=== PATIENT | male | born 1995 | race Two or more races ===

== ENCOUNTER 2016-08-04 15:34 | Emergency (ER) | payer MEDICARE, MEDICAID ==
[~2016-08-04] VITALS: Ht 165.1 cm; Wt 91.6 kg
[2016-08-04 15:34] VITALS: BP 127/77
== END 2016-08-04 16:27 | disposition home or self-care (01) ==
LOC: ER 15:37
DX: J06.9 Acute upper respiratory infection, unspecified (principal); F84.0 Autistic disorder
CPT/HCPCS: 99281; A4606; Z7502; Z7610

== ENCOUNTER 2017-02-27 13:39 | Emergency (ER) | payer MEDICARE ==
[~2017-02-27] VITALS: Ht 172.7 cm; Wt 99.8 kg
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
[2017-02-27] MEDS ORDERED: MIDAZOLAM HCL 2 MG/2ML VIAL IM ONE ×2 (15:30→16:00)
[2017-02-27] MEDS ORDERED: MIDAZOLAM HCL 2 MG/2ML VIAL ONE ×2 (15:38→15:50)
[2017-02-27 17:17] VITALS: BP 137/80
== END 2017-02-27 17:19 | disposition home or self-care (01) ==
LOC: ER 13:42
DX: S00.83XA Contusion of other part of head, initial encounter (principal); X83.8XXA Intentional self-harm by other specified means, initial encounter; Y93.89 Activity, other specified; Y92.89 Other specified places as the place of occurrence of the external cause; Y99.8 Other external cause status
CPT/HCPCS: 70450; 96374; 99285; A4606; A6402; J2250 ×2; Z7610

== ENCOUNTER 2017-03-17 13:08 | Emergency (ER) | payer MEDICARE ==
[~2017-03-17] VITALS: Ht 170.2 cm; Wt 97.5 kg
[2017-03-17 13:08] VITALS: BP 136/78
== END 2017-03-17 16:05 | disposition home or self-care (01) ==
LOC: ER 13:10
DX: J06.9 Acute upper respiratory infection, unspecified (principal); F84.0 Autistic disorder
CPT/HCPCS: 99281; A4606; Z7502; Z7610

== ENCOUNTER 2017-03-24 17:09 | Emergency (ER) | payer MEDICARE ==
[~2017-03-24] VITALS: Ht 167.6 cm; Wt 99.1 kg
[2017-03-24 17:39] VITALS: BP 99/54
--- NOTE | 2017-03-24 17:50 | NUR ---
RADIOLOGY AT BEDSIDE FOR CHEST XRAY.
== END 2017-03-24 18:27 | disposition home or self-care (01) ==
LOC: ER 17:10
DX: J40 Bronchitis, not specified as acute or chronic (principal); F84.0 Autistic disorder
CPT/HCPCS: 71010; 99283; A4606; Z7610

== ENCOUNTER 2017-06-24 10:46 | Emergency (ER) | payer MEDICARE ==
[~2017-06-24] VITALS: Ht 172.7 cm; Wt 104.3 kg
[2017-06-24 10:46] VITALS: BP 140/88
[2017-06-24] MEDS ORDERED: diphenhydrAMINE HCL 50 MG/ML VIAL IM ONE (12:30)
[2017-06-24] MEDS ORDERED: HALOPERIDOL LACTATE INJ 5 MG/ML VIAL IM ONE (12:30)
[2017-06-24] MEDS ORDERED: HALOPERIDOL LACTATE INJ 5 MG/ML VIAL ONE (12:45)
[2017-06-24] MEDS ORDERED: diphenhydrAMINE HCL 50 MG/ML VIAL ONE (12:45)
--- NOTE | 2017-06-24 13:07 | NUR ---
MEDICATED PATIENT PER MD ORDERS.
== END 2017-06-24 14:25 | disposition home or self-care (01) ==
LOC: ER 10:48
DX: S00.03XA Contusion of scalp, initial encounter (principal); F84.0 Autistic disorder; W22.8XXA Striking against or struck by other objects, initial encounter; Y93.89 Activity, other specified; Y92.89 Other specified places as the place of occurrence of the external cause; Y99.8 Other external cause status
CPT/HCPCS: 70450-TC; A4606; J1200; J1630; Z7610

== ENCOUNTER 2018-05-03 20:16 | Emergency (ER) | payer MEDICARE, BC ==
[~2018-05-03] VITALS: Ht 172.7 cm; Wt 109.3 kg
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
--- NOTE | 2018-05-03 21:45 | NUR ---
PT RESTING COMFORTABLY WITH FAMILY MEMBERS AT BEDSIDE. NO COMPLAINTS AT THIS TIME. VSS
--- NOTE | 2018-05-03 22:35 | NUR ---
Patient discharged to home in stable condition. Written and verbal after care instructions given. Patient verbalizes understanding of instruction.
[2018-05-03 22:37] VITALS: BP 135/87
== END 2018-05-03 22:30 | disposition home or self-care (01) ==
LOC: ER 20:21
DX: T65.91XA Toxic effect of unspecified substance, accidental (unintentional), initial encounter (principal); F84.0 Autistic disorder; Y92.89 Other specified places as the place of occurrence of the external cause
CPT/HCPCS: 99281; A4606; Z7502

== ENCOUNTER 2019-05-30 12:40 | Emergency (ER) | payer MEDICARE, BC ==
[~2019-05-30] VITALS: Ht 172.7 cm; Wt 109.3 kg
[2019-05-30 12:59] VITALS: BP 107/94
== END 2019-05-30 14:53 | disposition home or self-care (01) ==
LOC: ER 12:40
DX: L03.032 Cellulitis of left toe (principal); F84.0 Autistic disorder

== ENCOUNTER 2019-11-17 12:36 | Emergency (ER) | payer MEDICARE, BC ==
[~2019-11-17] VITALS: Ht 172.7 cm; Wt 115.7 kg
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
--- NOTE | 2019-11-17 12:51 | NUR ---
DR SALAZAR AT BEDSIDE
--- NOTE | 2019-11-17 13:41 | NUR ---
Patient discharged to home with mother in stable condition. Written and verbal after care instructions given. Mother verbalizes understanding of instruction.
[2019-11-17 13:42] VITALS: BP 143/88
== END 2019-11-17 13:42 | disposition home or self-care (01) ==
LOC: ER 12:42
DX: S80.212A Abrasion, left knee, initial encounter (principal); W01.0XXA Fall on same level from slipping, tripping and stumbling without subsequent striking against object, initial encounter; Y92.89 Other specified places as the place of occurrence of the external cause; F84.0 Autistic disorder; R05 Cough; R19.4 Change in bowel habit; Z20.828 Contact with and (suspected) exposure to other viral communicable diseases
CPT/HCPCS: C9803-CS; U0003-CS

== ENCOUNTER 2019-12-19 14:41 | Emergency (ER) | payer MEDICARE, BC ==
[~2019-12-19] VITALS: Ht 172.7 cm; Wt 116.6 kg
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
--- NOTE | 2019-12-19 16:27 | NUR ---
DR BULL AT BEDSIDE
[2019-12-19] MEDS ORDERED: ALPRAZOLAM 0.25 MG TABLET ONE (16:34)
[2019-12-19] MEDS: ALPRAZOLAM 0.25 MG TABLET PO ONE (16:45)
--- NOTE | 2019-12-19 16:45 | NUR ---
Patient discharged to home with mother abnd caregiver in stable condition. Written and verbal after care instructions given. Mother verbalizes understanding of instruction.
[2019-12-19 16:46] VITALS: BP 146/81
== END 2019-12-19 16:47 | disposition home or self-care (01) ==
LOC: ER 14:46
DX: S00.83XA Contusion of other part of head, initial encounter (principal); H66.93 Otitis media, unspecified, bilateral; H72.92 Unspecified perforation of tympanic membrane, left ear; F84.0 Autistic disorder; W22.8XXA Striking against or struck by other objects, initial encounter; Y93.89 Activity, other specified; Y92.511 Restaurant or cafe as the place of occurrence of the external cause; Y99.8 Other external cause status

== ENCOUNTER 2023-08-04 20:38 | Emergency (ER) | payer MEDICARE, BC ==
[~2023-08-04] VITALS: Ht 177.8 cm; Wt 108.9 kg
[2023-08-04 21:39] VITALS: TEMP 97.7
[2023-08-04] MEDS ORDERED: LET SOLN TOPICAL 8 ML UDC TP ONE (21:49)
[2023-08-04] MEDS: LORAZEPAM 1 MG TABLET PO ONE (22:13)
[2023-08-04] MEDS ORDERED: LORAZEPAM 1 MG TABLET ONE (22:13)
[2023-08-04] MEDS ORDERED: ACETAMINOPHEN ES 500 MG TABLET ONE (23:34)
[2023-08-04] MEDS ORDERED: TDAP [DIPH/PERTUSSIS/TET] 0.5 ML VIAL IM ONE (23:34)
[2023-08-04] MEDS: ACETAMINOPHEN ES 500 MG TABLET PO ONE (23:35)
[2023-08-04] MEDS: TDAP [DIPH/PERTUSSIS/TET] 0.5 ML VIAL IM ONE (23:35)
[2023-08-05 00:15] VITALS: BP 128/72; O2SAT 98
== END 2023-08-05 00:15 | disposition home or self-care (01) ==
LOC: ER 20:40
DX: S01.01XA Laceration without foreign body of scalp, initial encounter (principal); W22.8XXA Striking against or struck by other objects, initial encounter; Y93.89 Activity, other specified; Y92.89 Other specified places as the place of occurrence of the external cause; Y99.8 Other external cause status
CPT/HCPCS: 90715

== ENCOUNTER 2023-08-17 20:37 | Emergency (ER) | payer MEDICARE, BC ==
[~2023-08-17] VITALS: Ht 177.8 cm; Wt 108.9 kg
[2023-08-17 21:07] VITALS: BP 133/88; TEMP 98; O2SAT 99
== END 2023-08-17 22:20 | disposition home or self-care (01) ==
LOC: ER 20:39
DX: S01.01XD Laceration without foreign body of scalp, subsequent encounter (principal); Z48.02 Encounter for removal of sutures; X58.XXXD Exposure to other specified factors, subsequent encounter

== ENCOUNTER 2025-01-10 17:55 | Emergency (ER) | payer OTHER, BC ==
[~2025-01-10] VITALS: Ht 177.8 cm; Wt 108.9 kg
[2025-01-10 18:03] VITALS: TEMP 98.1
[2025-01-10] MEDS ORDERED: TYL2T PO (19:26)
[2025-01-10] MEDS ORDERED: IBUP-1953 PO (19:26)
[2025-01-10 21:37] VITALS: BP 136/81; O2SAT 99
== END 2025-01-10 20:45 | disposition home or self-care (01) ==
LOC: ER 18:01
DX: S82.832A Other fracture of upper and lower end of left fibula, initial encounter for closed fracture (principal); Z79.1 Long term (current) use of non-steroidal anti-inflammatories (NSAID); W01.0XXA Fall on same level from slipping, tripping and stumbling without subsequent striking against object, initial encounter; Y93.89 Activity, other specified; Y92.89 Other specified places as the place of occurrence of the external cause; Y99.9 Unspecified external cause status
CPT/HCPCS: 73610-TC; 73630-TC